=== PATIENT | male | born 1930 | race Caucasian/White ===

== ENCOUNTER 2017-04-27 20:27 | Inpatient (IN) | payer MEDICARE ==
[~2017-04-27] VITALS: Ht 177.8 cm; Wt 57.1 kg
[~2017-04-27 20:27] MED LIST: AUGMENTIN 875-1 EACH PO; BENZONATATE100 MG PO; ZITHROMAX250 MG PO
--- NOTE | 2017-04-27 23:55 | NUR ---
PT ARRIVED TO ROOM 120 FROM ER R/T WEAKNESS, FALL FROM HIS W/C TO HIS KNEES. IS HIS PRIMARY CAREGIVER, AND PER REPORT FROM MELO MINOR IN ER, PT HAS BEEN MORE DIFFICULT TO CARE FOR DUE TO WEAKNESS. "NORMALLY PT IS UP IN HIS CHAIR ALL DAY". PT WAS UNABLE TO STAND ON 04/26/17, SO HIS WAS UNABLE TO CHANGE HIM. ATTENDS PT HAD ON IN ER WAS ON SINCE DAY BEFORE. SENIOR TAX ANALYST STATED PT WAS INCONT OF URINE, SOAKED, WELL BOWEL. PER , WHO IS PRESENT IN ROOM, STATED THAT FOR PAST 3 WEEKS OR SO PATIENT HAS BEEN MORE DIFFICULT TO CARE FOR HE ISN'T ABLE TO HELP. SHE DENIES BEHAVIORS THE CAUSE OF THE INABILITY TO CARE FOR HIM. PT SMILES WHEN TALKED TO, HAS BODY ODOR (BATHING ISSUE VS SKIN BREAKDOWN). NOTE NO BREAKDOWN SKIN, BUT PT IS "BONY" AND AT RISK FOR SKIN BREAKDOWN. FEET AND HANDS ARE COOL, PALE. STATES HE HAS BEEN COLD. WRAPPED IN WARM BLANKET. ATTENDS PRESENT AND DRY AT THIS TIME
--- NOTE | 2017-04-28 02:47 | NUR ---
NOTIFIED DR COREA OF PTS DECREASED BLOOD PRESSURE, NEW ORDERS RECEIVED. NS BOLUS RUNNING WNL AT 500MLS PER HOUR. PT APPEARS ASLEEP, RR WNL AND UNLABORED, PT WAKES TO GENTLE SHAKE, BUT FALLS BACK ASLEEP QUICKLY. BED ALARM ACTIVE. LIGHTS AND TV OFF IN ROOM.
--- NOTE | 2017-04-28 03:50 | NUR ---
RE-ASSESSED BLOOD PRESSURE. PT WOKE, BUT UNABLE TO HOLD CONVERSATION, BUT STATES THIS IS BASELINE FOR HIM.
--- NOTE | 2017-04-28 05:46 | NUR ---
PT HAD UNEVENTFUL NIGHT. SLEPT MAJORITY OF SHIFT. POOR HISTORIAN, ONLY ANSWERS QUESTIONS WITH A "YES," ANSWER, ONLY WORD RN HEARD HIM SAY ALL NIGHT. BED ALARM ON FOR SAFETY. STAYED THE NIGHT IN THE ROOM.
--- NOTE | 2017-04-28 06:52 | NUR ---
CALLED DR COREA REGARDING LOW BLOOD PRESSURE, NO NEW ORDERS AT THIS TIME.
--- NOTE | 2017-04-28 07:50 | NUR ---
PT RESTING SOUNDLY IN BED, EYES CLOSED, RESP EVEN AND UNLABORED. IV INFUSING WNL. BED ALARM ON.
--- NOTE | 2017-04-28 08:29 | NUR ---
PATIENT IN BED RESTING PEACEFULLY WITH HIS EYES CLOSED.
--- NOTE | 2017-04-28 10:00 | NUR ---
PT AWAKE, UNABLE TO COMMUNICATE VERBALLY. DOES NOT APPEAR TO BE IN DISTRESS. SCRATCHING HEAD PROFUSELY, NOTED PT'S SKIN IS VERY DRY AND FLAKEY. APPLIED ALOE CREAM TO HEAD AND THE REST OF PT'S SKIN. PT STOPPED SCRATCHING SHORTLY AFTER. DISORIENTED TO ALL. NON AMBULATORY AT THIS TIME, UNABLE TO FOLLOW COMMANDS. ATTENDS IN PLACE PT IS INCONTINENT, DRY AT THIS TIME. ASSISTED TO EAT SMALL AMOUNT OF BREAKFAST, PHUONG WELL. BED ALARM ON, BED RAILS UP.
--- NOTE | 2017-04-28 10:11 | NUR ---
MED REC COMPLETE WITH [facility] REFILL HISTORY AND [facility]NAL MEDICINE HISTORY AND PHYSICAL. PATIENT TAKES NO HOME MEDICATIONS.
--- NOTE | 2017-04-28 11:10 | NUR ---
PT ATTENDS REMAIN MOSTLY DRY. BLADDER SCANNED FOR 530ML. NOTIFIED DR. COREA, NO NEW ORDERS AT THIS TIME.
--- NOTE | 2017-04-28 12:30 | NUR ---
bed bath done. skin, oral, and david care done. turned onto right side. call button in reach. bed down and alarm on.
--- NOTE | 2017-04-28 13:43 | EKG ---
[facility] [address] [place] [id number] Signed Normal sinus rhythm Moderate voltage criteria for LVH, may be normal variant Borderline ECG No previous ECGs available Confirmed by BITA COREA MD ([id number]) on 04/28/2017 1:43:12 PM Electronically Signed By: BITA COREA MD 04/28/17 1343 PATIENT NAME: JERMAINEVIRYMARILUZ Electrocardiogram DATE OF : [birth year] PHYSICIAN: BITA COREA MD REPORT #: [id number] REPORT IS CONFIDENTIAL AND NOT TO BE RELEASED WITHOUT AUTHORIZATION
--- NOTE | 2017-04-28 15:00 | NUR ---
DIAPER, GURPREET, AND SKIN CARE DONE. TURNED PATIENT ONTO LEFT SIDE. BED DOWN AND ALARM ON. WARM BLANKETS GIVEN.
--- NOTE | 2017-04-28 15:06 | NUR ---
PT INCONTINENT OF URINE. REPOSITIONED.
--- NOTE | 2017-04-28 16:16 | NUR ---
PT BEDBOUND, TURN Q2. INCONTINENT OF BOWEL AND BLADDER. END STAGE DEMENTIA. UNABLE TO COMMUNICATE VERBALLY OR FOLLOW COMMANDS. PT HAS RESTED IN BED THIS SHIFT. SATTING HIGH 90'S ON RA, PULSE OX ON. IV INFUSING WNL. PT REQUIRES ASSISTANCE FEEDING, DRINKS ENSURES WELL. SKIN VERY DRY AND ITCHY, ALOE CREAM APPLIED. HEEL PROTECTORS IN PLACE. BED ALARM ON.
--- NOTE | 2017-04-28 17:05 | NUR ---
Patient resting in bed with eyes closed. diaper clean. turned onto right side. bed alarm on.
--- NOTE | 2017-04-28 18:19 | NUR ---
PATIENT IN BED. STATES THAT HE ISN'T HUNGRY. TRIED TO FEED HIM SOME SOUP. PATIENT GOT IRRITATED AND STARTED SWINING HIS ARM AT ME. WHILE TAKING PATIENTS BP PATIENT GOT UPSET AND STARTED SWINGING HIS ARM AT ME. BED ALARM ON.
--- NOTE | 2017-04-28 18:24 | NUR ---
PT SITTING UP IN BED AWAKE. TURNED AND CHANGED. BED RAILS UP, BED ALARM ON.
--- NOTE | 2017-04-28 19:21 | NUR ---
RECEIVED REPORT FROM DAY SHIFT RN. PATIENT IS RESTING IN BED. PATIENT SAID "HELLO" PATIENT APPEARS TO BE IN NO APPARENT DISTRESS. PATIENTS BED ALARM IS ON AND CALL LIGHT IN REACH.
--- NOTE | 2017-04-28 20:49 | NUR ---
PATIENT ASSESMENT COMPLETED. PATIENT DENIES ANY PAIN. PATIENT DOES NOT SHOW ANY NONVERBAL CUES OF PAIN. PATIENTS ATTEND CHANGED AND GURPREET CARE PERFOMED. PATIENT HAD X1 BM. PATIENT REPOSTIONED IN BED. PATIENT GIVEN DRINKS OF WATER AND ENSURE. BED ALARM ON FOR PATIENT SAFETY PATIENT IS ONLY ORIENTED TO SELF. CALL LIGHT IN REACH.
--- NOTE | 2017-04-28 23:08 | NUR ---
PATIENT REPOSTIONED IN BED. PATIENT GIVEN DRINKS OF ENSURE AND WATER. PATIENT STATED "THIS IS GOOD" PATIENT REMAINS ONLY ORIENTED TO SELF. PATIENTS BED ALARM IS ON FOR SAFETY AND CALL LIGHT IN REACH.
--- NOTE | 2017-04-29 00:28 | NUR ---
PATIENTS ATTEND CHANGED. PATIENT WAS INCONTINENT OF URINE AND STOOL. PATIENT REPOSTIONED IN BED. BED ALARM ON FOR SAFETY AND CALL LIGHT IN REACH.
--- NOTE | 2017-04-29 02:05 | NUR ---
PATIENT RESPOSITIONED. PATIENT IS DROWSY BUT EASY TO AROUSE. PATIENT TOLERATED ACTIVITY WELL. PATIENTS BED ALARM REMAINS ON FOR SAFETY. CALL LIGHT IN REACH.
--- NOTE | 2017-04-29 02:07 | NUR ---
PATIENT REPOSITIONED. PATIENTS ATTEND IS DRY AT THIS TIME. PATIENT TOLERATED ACTIVITY WELL. PATIENT ONLY MOMENTARILY OPENED HIS EYES DURING REPOSTITIONING. PATIENTS BED ALARM REMAINS ON FOR SAFETY AND CALL LIGHT IS WITHIN REACH.
--- NOTE | 2017-04-29 05:19 | NUR ---
PATIENT RESTED WELL THROUGHOUT THE SHIFT. PATIENT REPOSITIONED Q2HRS. PATIENT HAD X2 BMS. PATIENT IS NOT ORIENTED, BUT IS COOPERATIVE WITH CARE. PATIENT IS ON A SOFT REG DIET AND NEEDS ASSISTANCE WITH EATING. PATIENT IS INCONTINENT AND ATTEND IS IN PLACE. PATIENT IS SL AND IV FLUSHES WELL. PATIENTS BED ALARM REMAINS ON FOR PATIENT SAFETY. PATIENT DOES NOT USE CALL LIGHT. PATIENT ACROSS FROM NURSES STATION TO BE MONITORED OFTEN.
--- NOTE | 2017-04-29 06:24 | NUR ---
PATIENTS ATTEND CHANGED AND GURPREET CARE PERFORMED. BARRIER CREAM APPLIED TO COCYX AREA. PATIENT HAD A BMX1. PATIENT DOES ANSWER QUESTIONING ABOUT IMMEDIATE FAMILY. PATIENT IS ONLY ORIENTED TO SELF. PATIENT REPOSITIONED. PATIENTS BED ALARM REMAINS ON FOR SAFETY. CALL LIGHT IN REACH. ORAL CARE PERFORMED.
--- NOTE | 2017-04-29 06:39 | NUR ---
GURPREET CARE PROVIDED TO PATIENT. PATIENT TURNED TO RIGHT SIDE. HAIR BRUSHED, ORAL CARE PROVIDED, FACE WASHED, AND WARM BLANKET. PATIENT IS TOLERATING ORAL LIQUIDS. PATIENT REORIENTED TO SURROUNDINGS AND REASON FOR HOSPITALIZATION. PATIENT IN BED WITH BED ALARM ON. CALL LIGHT WITHIN REACH. NO REQUEST.
--- NOTE | 2017-04-29 07:48 | NUR ---
pt lying in bed. pt unable to answer direct questions at times. on room air. bed alarm on. will need assistance with eating meals. bowel movements multiple overnight. pt itching dry skin. IVF @ 100. advanced diet to soft. will await to hear discharge plan.
--- NOTE | 2017-04-29 10:24 | NUR ---
PT IS LYING IN BED WITH BED ALARM ON AND CALL LIGHT IN REACH. PT WAS CHANGED AND REPOSITIONED ON TO HIS LEFT SIDE.
--- NOTE | 2017-04-29 11:49 | NUR ---
pt continuously waves arms in front of himself. content lying in bed. turned q2. no complaints.
--- NOTE | 2017-04-29 14:22 | NUR ---
PT IS SITTING UP IN BED SAFELY WITH CALL LIGHT IN REACH. PT DID NOT NEED ANYTHING ELSE
--- NOTE | 2017-04-29 14:22 | NUR ---
MELO TONEY REQUESTED THAT I VISIT WITH PT AND HIS SON. PT HAS DEMETIA, ANSWERS QUESTIONS POSED TO HIM. SON STRUGGLING WITH DAD'S CONDITION. THEY HAVE CARED FOR HIM AT THEIR HOME-THAT WILL HAVE TO CHANGE. 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 ANKUSH IS STRUGGLING WITH HIS OWN ISSUES WITH HIS HEALTH AND CHALLENGES HE FACES RAISING HIS KIDS. HE NEEDED TO HAVE SOMEONE TO JUST VENT WITH. HAD PRAYER WITH BOTH AND WILL CONTINUE TO FOLLOW. ENCOURAGED ANKUSH TO VISIT WITH [employer] ABOUT OPTIONS FOR PLACEMENT
--- NOTE | 2017-04-29 16:00 | NUR ---
FAXED CHART NOTES TO [facility] INCLUDING FACESHEET, ER NOTES, H AND P, PROG NOTES, IMAGING, MEDS, LABS AND PT NOTES. TALKED WITH VAN REGARDING THIS PT.
--- NOTE | 2017-04-29 17:28 | NUR ---
DEMENTIA BASELINE. WAVES HANDS IN FRONT OF SELF. PLEASANT. BED ALARM AT NIGHT. COBAN PROTECTING RFA IV. FEEDER. INCONTINENT.
--- NOTE | 2017-04-29 18:11 | NUR ---
PT IS SITTING UP IN BED WATHCHING TV. PT APPEARS TO BE VERY FIGITY, HAD TROUBLE GETTING VITALS DUE TO HE WOULD NOT STOP MOVING. PT STATED HE WAS FINE AND DID NOT NEED ANYTHING
--- NOTE | 2017-04-29 19:12 | NUR ---
RECEIVED REPORT FROM DAY SHIFT RN. PATIENT IS RESTING IN BED. PATIENT DOES NOT RESPOND TO GREETINGS. PATIENTS BED ALARM IS ON FOR SAFETY ADN CALL LIGHT IN REACH.
--- NOTE | 2017-04-29 20:15 | NUR ---
PATIENT ASSESMENT COMPLETED. PATIENTS ATTEND CHANGED AND GURPREET CARE PERFORMED. BARRIER CREAM APPLIED TO COCYX AREA IS IS SLIGHTLY REDDENED. PATIENT REPOSTIONED. PATIENT DOES NOT SHOW ANY NON VERBAL CUES OF PAIN. PATIENT IS NOT ORIENTED AND IS FORGETFUL. PATIENTS BED ALARM IS ON FOR SAFETY AND CALL LIGHT IS WITHIN REACH.
--- NOTE | 2017-04-29 21:21 | NUR ---
VITALS TAKEN BY SALES CONTRACTS ANALYST. SALES CONTRACTS ANALYST ALERTED STAFF THAT PATIENT HAD AN ELEVATED TEMPERATURE. TEMP REASSESED TEMPORAL AND AXILLARY. PATIENT WAS NOT COOPERATIVE WITH AN ORAL TEMP. PLACED A CALL TO DR. COREA ABOUT PATIENTS ELEVATED TEMP. DR. COREA GAVE X2 NEW VERBAL ORDERS, VERIFIED ORDERS USING THE READBACK METHOD. PLACED ORDER FOR A CHEST X-RAY SINGLE VIEW AND A ONE TIME STRAIGHT CATH FOR A CLEAN CATCH URINE SAMPLE. WILL COMPLETE NEW ORDERS.
--- NOTE | 2017-04-29 21:34 | NUR ---
MRI ASSISTANT ADMINISTERED TYLENOL FOR ELEVATED TEMP. X-RAY COMPLETED WITH PORTABLE. PATIENT TOLERATED ACTIVITY WELL.
--- NOTE | 2017-04-29 21:55 | NUR ---
STRAIGHT CATH CLEAN CATCH URINE SAMPLE TAKEN AND SENT TO THE LAB. PATIENT TOLERATED ACTIVITY WELL. PATIENTS ATTEND CHANGED. GURPREET CARE PERFORMED. PATIENT HAD A SMALL BMX1. PATIENT REPOSTIONED AND BED ALARM PLACED ON. CALL LIGHT IN REACH.
--- NOTE | 2017-04-29 22:45 | NUR ---
WENT TO REASSES PATIENTS TEMP. PATIENT WAS IN VISIBLE DISTRESS. PATIENT WAS SHAKING, DIAPHORHETIC, AND HAD AN INCREASED RR. FULL SET OF VITALS TAKEN. PATIENT HAD AN INCREASED TEMPERATURE, AND LOW OXYGEN. PATIENT PLACED ON OXY MASK. EVALUATOR IN THE ROOM WITH PATIENT PLACED A CALL TO DR. COREA. DR COREA TO THE FLOOR TO EVALUATE PATIENT. RT ALSO IN THE ROOM TO EVALAUTE PATIENT. NEW ORDERS PUT IN COMPUTER BY DR. COERA. WILL PUT NEW ORDERS INTO PLACE.
--- NOTE | 2017-04-29 23:42 | NUR ---
PATIENTS VITALS TAKEN AND RECORDED. PATIENT STILL HAS ELEVATED TEMP WILL CONTINUE TO MONITOR. PATIENT IS NOW BACK IN ROOM AIR. PULSE OX IN PLACE TO MONITOR PATIENT. PATIENT RECEIVEING LR BOLUS. LAB IN THE ROOM TO DRAW CULTERES PER ORDER. PATIENTS RR IS 22. BED ALARM ON AND CALL LIGHTIN REACH.
--- NOTE | 2017-04-30 00:28 | NUR ---
PATIENT REPOSITIONED IN BED. BED ALARM ON. CALL LIGHT WITHIN REACH. NO REQUEST AT THIS TIME.
--- NOTE | 2017-04-30 01:00 | NUR ---
PATIENTS BOLUS COMPLETED. PATIENTS TEMPERATURE RE-EVALUATED IT IS NOW 100.7. PATIENT APPEARS TO BE IN N OAPPARENT DISTRESS. BED ALARM IS ON AND CALL LIGHT IN REACH.
--- NOTE | 2017-04-30 01:36 | NUR ---
PATIENTS ATTEND CHANGED. PATIENT HAD X1 BM AND WAS INCONTINENT OF URINE. PATIENT TOLERATED ACTIVITY WELL. PATIENT REPOSTIIONED I BED. CALL BED ALARM ON AND CALL LIGHT IN REACH.
--- NOTE | 2017-04-30 03:16 | NUR ---
PATIENT REPOSITIONED. PATIENT DID NOT AWAKEN. PATIENT IS RESTING WITH EYES CLOSED. BREATHING IS EVEN AND UNLABORED. PATIENTS BED ALARM REMAINS ON FOR SAFETY. CALL LIGHT IN REACH.
--- NOTE | 2017-04-30 05:11 | NUR ---
PATIENT IS RESTING IN BED WITH EYES CLOSED, RR16.
--- NOTE | 2017-04-30 05:11 | NUR ---
PATIENT RESTED WELL DURING THE LATER PART OF THE SHIFT. PATIENT HAD AN INCREASED TEMPERATURE WHICH RESULTED IN NEW ORDERS. PATIENT IS ON A REG, SOFT DIET BUT HAS NOT EATEN ON THE DRUM HANDLER. PATIENT TURNED Q2. PATIENT IS NOT ORIENTED, THEREFORE BED ALARM HAS BEEN ON FOR SAFETY. PATIENT IS INCONTINENT OF STOOL AND URINE. PATIENT HAD SEVERAL BMS. PATIENT RECEIVED PRN TYLENOL X1 FOR INCREASED TEMP.
--- NOTE | 2017-04-30 06:47 | NUR ---
PATIENTS ATTEND CHANGED AND GURPREET CARE PERFORMED. PATIENTS IV INFILTRATED. NEW IV STARTED. PATIENT TOLERATED ACTIVITY WELL. PATIENT SHOWED SIGNS OF OUTWARD DISTRESS. TEMPERATURE TAKEN AND IT WAS 100.2. PATIENT GIVEN PRN TYELNOL PER ORDER. WILL CONTINUE TO MONITOR.
--- NOTE | 2017-04-30 07:23 | NUR ---
RECIEVED BEDSIDE REPORT FROM MELO BURTON AND MELO BRAR. PT IN BED, AWAKE AND ALERT, ORIENT X1. PT VERY RESTLESS, BUT PLEASANT.
--- NOTE | 2017-04-30 09:59 | NUR ---
PT IN BED SLEEPING SOUNDLY, SNORING. PT DIFFICULT TO WAKE, BUT WILL ROUSE TO PAIN. O2 APPLIED WHILE SLEEPING, O2 92% ON 2L. MD AWARE OF LOW BLOOD PRESSURE.
--- NOTE | 2017-04-30 13:52 | NUR ---
PT IS MUCH MORE LETHARGIC TODAY. MD AWARE. WAITING FOR STOOL SAMPLE, NO BM THIS SHIFT. PT WILL WAKE TO ACTVITY AND VOICE. BED BATH COMPLETE.
--- NOTE | 2017-04-30 14:13 | NUR ---
PT WAS CHANGED, GIVEN A COMPLETE BED BATH AND LINEN CHANGE, AND REPOSISTIONED ONTO HIS LEFT SIDE.
--- NOTE | 2017-04-30 17:00 | NUR ---
PT VERY LETHARGIC THIS SHIFT. WILL WAKE TO VERBAL STIMULI AT TIMES. MAY WAKE TO PHYSICAL STIMULI. WHILE AWAKE WILL ANSWER QUESTIONS. MAG RIDER GIVEN, FLUID BOLUS GIVEN, MAINT FLUIDS RUNNING. STOOL SAMPLE SENT TO LAB FOR TESTING. UA, CHEST X RAY, AND LAB WORK COMPLETE.
--- NOTE | 2017-04-30 17:53 | NUR ---
PT IS SITTING UP IN BED I AM ATTEMPTING TO WAKE THE PT SO I CAN FEED HIM DINNER PT BARELY NESS, NURSE AWARE
--- NOTE | 2017-04-30 18:16 | NUR ---
PT VERY DIFFICULT TO WAKE. CHARGE NURSE NOTICED SLIGHT LEFT SIDE FACIAL DROOP. MD ADVISED. CHECK VITALS Q HOUR X [address] HOURS. NOTIFY MD OF RESULTS. PLACE CONDOM CATH TO MEASURE URINE OUTPUT. CONDOM CATH PLACED WELL POSSIBLE. DR COREA ADVISED "IF IT WORKS, GOOD, IF NOT, THAT'S FINE." DIFFICULTY PLACING CATH DUE TO ANATOMY. O2 ON AT 4L VIA NC. MAINTAINING O2 LEVELS IN 90S. PT WAKING SLIGHTLY WITH INCREASE IN O2.
--- NOTE | 2017-04-30 18:52 | NUR ---
WAS ABLE TO WAKE PT UP ENOUGH TO EAT DINNER, HE ATE A FAIR AMOUNT BEFORE REFUSING TO TAKE ANY MORE BITES
--- NOTE | 2017-04-30 21:26 | NUR ---
PT TURNED, INCONTINENT, CLEANSED, CONTINUES TO BE UNABLE TO FOLLOW INSTRUCTIONS, CALM, LISTENING TO SOOTHING MUSIC, IV INFUSING W/O PROBLEMS, O2 4L/NC IN PLACE, CONT PULSE OX IN PLACE
--- NOTE | 2017-05-01 04:57 | NUR ---
Pt continues to be unable to assess information. Turned q2h, slept. Pinches when turning, cooperative, unable to process information when procedures explained. O2 2l/nc, cont pulse ox in place, sats 94-96%. Able top tolerate sips of fluid and jello, no chocking episodes this shift. Incontinent of urine x2, and loose soft bm x1, cleansed. currently turned to r side, no distress. IVF infusing w/o problems. Bed alarm on, pt across from [facility] high risk fall protocol in place, hob elevated 30 degrees. Ocassional dry, non prod coucg present. Awake, has taken off n/c off several times, replaced back on nares.
--- NOTE | 2017-05-01 09:00 | NUR ---
SHOWER COMPLETE, GURPREET CARE DONE, PATIENT FED HIS BREAKFAST ATE 30%. LINEN CHANGE DONE.
--- NOTE | 2017-05-01 09:15 | NUR ---
PT AWAKE IN BED. DISORIENTED TO ALL. PARROTS WORDS AND CAN OCC FOLLOW VERY SIMPLE COMMANDS. DOES NOT APPEAR TO BE IN ANY PAIN OR DISTRESS. SITTING COMFORTABLY IN BED. PT ATE ALL OF BREAKFAST WITH ASSISTANCE. ATTENDS CHANGED. SATTING 95% ON RA. HEEL PROTECTORS IN PLACE. BED RAILS UP, ALARM ON. IV INFUSING WNL.
--- NOTE | 2017-05-01 12:34 | NUR ---
PT IN ROOM FEEDING PT LUNCH.
--- NOTE | 2017-05-01 14:50 | NUR ---
ATTENDS CHANGED. PT REPOSITIONED.
--- NOTE | 2017-05-01 17:05 | NUR ---
PT AWAKE IN BED WATCHING TV. REACHING OUT TO AIR OCCASIONALLY. DOES NOT APPEAR TO BED IN ANY DISTRESS. AIDE FEEDING PT DINNER, PHUONG WELL.
--- NOTE | 2017-05-01 18:07 | NUR ---
PT IS SITTING UP IN BED, BEING FED HIS DINNER, PT DID NOT NEED ANYHTING AT THE [facility]
--- NOTE | 2017-05-02 00:56 | NUR ---
pt turned, incontinent of large amoount of urine and medium sized soft brown bm. whole bed bedding and pts gown changed. procedure explained, not very coop. Repositioned in bed, keeps taking O2 off, awake most of this shift, moves r amr w/o direction, up the mookie , very stiff legs
--- NOTE | 2017-05-02 04:49 | NUR ---
PT TURNED, REQUIRES 2 PERSON ASSIST, INCONTINENT OF URINE AND BOWEL, NOT VERY COOP. PROCEDURE EXPLAINED, PT UNABLE TO PROCESS INFORMATION DUE TO MENTAL STATUS. SKIN CLEANSED, BED LINEN AND GOWN CHANGED. O2 ON AT THIS TIME 2L, SATS 91%
--- NOTE | 2017-05-02 05:37 | NUR ---
PT HX DEMENTIA, UNABLE TO PROCESS INFORMATION, GETS TURNED Q2H. INCONTINENT OF BOWEL AND BLADDER, HAS NEEDED COMPLETE BED CHANGES EVERY TIME. PROCEDURES EXPLAINED TO PT EVERY TIME. HAS O2 N/A 2L WHEN ASLEEP, PT TAKES IT OFF AND IT GETS PLACED BACK. PLEASANTLY CONFUSED, CURRENTLY EYES CLOSED, O2 ON, NO RESP DISTRESS. IV SITE RAC INTACT, LARGE BULLAE AREA MID FOREARM, SOFT, MOVABLE, NON TENDET
--- NOTE | 2017-05-02 07:50 | NUR ---
PT SITTING UP IN BED. MENTATION REMAINS UNCHANGED. PT CAN SPEAK BUT UNABLE TO MAKE NEEDS KNOWN VERBALLY, SPEECH TYPICALLY UNCONPREHENSIBLE. PT APPEARS RELAXED, NO FACIAL GRIMACE OR RESTLESSNESS. BEING FED BREAKFAST BY AIDE, NO SIGNS OF SWALLOWING DIFFICULTIES. ATTENDS DRY. PT REPOSITIONED FREQUENTLY. IV SL, FLUSHES WELL.
--- NOTE | 2017-05-02 10:00 | NUR ---
PT RESTING IN BED, ATTENDS CHANGED, REPOSITIONED. TOOK SIPS OF WATER.
[2017-05-02] MEDS ORDERED: SULFAMETHOXAZO1 EAC1 PO (11:45)
[2017-05-02] MEDS ORDERED: MAPAP500 M1 PO (11:45)
[2017-05-02] MEDS ORDERED: CULTURELLE1 EAC1 PO (11:46)
--- NOTE | 2017-05-02 12:40 | NUR ---
ATTENDS CHANGED, REPOSITIONED. FED PT LUNCH, PHUONG WELL. ATE APPROX 90% OF MEAL.
--- NOTE | 2017-05-02 15:00 | NUR ---
PT REPOSITIONED, ATTENDS CHANGED. PT TOOK SIPS OF WATER. AT BEDSIDE.
--- NOTE | 2017-05-02 18:05 | NUR ---
PT FED DINNER. ATTENDS CHANGED, REPOSITINED IN BED. TOLERATED ORAL MEDS WELL.
--- NOTE | 2017-05-02 20:00 | NUR ---
EYES CLOSED, LEFT ARM REACHING UP IN THE AIR, AIMLESSLY. HOB ELEVATED AT THIS TIME.
--- NOTE | 2017-05-02 22:00 | NUR ---
ASSESS COMPLETE. PT SAID HI WHEN SPOKEN TO BUT UNABLE TO ANSWER QUESTIONS.
--- NOTE | 2017-05-02 22:51 | NUR ---
PT CHANGED AND REPOSITIONED BY THE [employer].
--- NOTE | 2017-05-03 01:26 | NUR ---
PT CURRENLTY MOVING AROUND IN BED, LIFTING HIS ARMS UP, LIFTING HIS HEAD UP. MOIST COUGH HEARD OFF AND ON. PT HOB ELEVATED 45 DEGREES, SIDE RAILS UP X 4 WITH BED ALARM ON.
--- NOTE | 2017-05-03 02:27 | NUR ---
INCONT CARE PROVIDED PT, WELL REPOSITIONED AND APPLIED LOTION PT WAS ITCHING HIS LEFT BUTTOCK. IS IN NEED OF HIS FINGERNAILS TO BE TRIMMED. PT WAS GRABBING, AND CLUTCHING SIDE RAILS AND STAFF ARMS DURING CARES. NEEDED REASSURANCE AND CUEING. ONCE CARE AND REPOSITIONING COMPLETED, PT SETTLED DOWN.
--- NOTE | 2017-05-03 03:43 | NUR ---
PT SNORING. HAS BEEN SNORING OFF AND ON SINCE BEING REPOSITIONED.
--- NOTE | 2017-05-03 06:38 | NUR ---
PT AWAKE TO RECEIVE PERSONAL CARE. INCONT CARE PROVIDED EVERY 2 HOURS, WITH TURNING. PT CONFUSED PER HIS NORM, NEEDING ENCOURAGEMENT TO ALLOW THE CARE.
--- NOTE | 2017-05-03 09:20 | NUR ---
PT ASSISTED WITH FEEDING, PHUONG BREAKFAST WELL. RECIEVED FULL BED BATH AND LINEN CHANGE.
--- NOTE | 2017-05-03 09:44 | NUR ---
BED BATH GIVEN WITH 2 PERSON ASSIST. GURPREET AND SKIN CARE DONE. FLOAT PATIENT ON ONE PILLOW UNDER EACH HIP AND PILLOW UNDER LEGS. PATIENT SITTING STRAIGHT UP IN BED WITH NURSE ASSISTING WITH BREAKFAST. BED ALARM ON.
--- NOTE | 2017-05-03 12:01 | NUR ---
SENT UPDATED CLINICALS TO [facility] THIS AM INCLUDING NURSING/MD NOTES AND PT NOTES.
--- NOTE | 2017-05-03 12:17 | NUR ---
P.T. WORKING WITH PT PERFORMING PASSIVE RANGE OF MOTION.
--- NOTE | 2017-05-03 12:45 | NUR ---
PATIENT TURNED ONTO RIGHT SIDE. BED ALARM ON.
--- NOTE | 2017-05-04 09:57 | NUR ---
CALLED AND SPOKE WITH PT ROBERTA, WHO STATES SHE NEVER TALKED TO ME LAST WEEK AND WE NEVER TALKED ABOUT DC PT ANYWHERE. TOLD HER THAT WE DID TALK ABOUT THIS AND WE ALSO TALKED ABOUT MEDICARE PAYING THE FIRST 20 DAYS AND THEN IT PAYS 80% FOR DAYS 21 THRU 100. THEN WE ALSO TALKED ABOUT HER APPLYING WITH [employer] AND PEOPLE WITH DISABLITIES TO SEE WHAT ASSISTANCE THEY COULD GIVE HER. I THEN TALKED WITH THE PT SON ANKUSH AND REITERATED TO THEM THAT I HAD TALKED TO THEM ABOUT MEDICARE AND MEDICAID AND ABOUT DIFFERENT FACILITIES AND EITHER I OR [facility] WOULD BE GLAD TO ASSIST THEM TO GET HIM INTO ANOTHER FACILITY. THEY TOLD ME THANK YOU AND TOOK MY NUMBER. THEY ALSO STATED THAT FOR THE TIME BEING THEY THOUGHT THEY WOULD LEAVE HIM AT [facility] AND LOOK AROUND AT SOME OF THE ASSISTED LIVING FACILITIES. I TOLD THEM [facility] HAS STAFF THAT IT IS THEIR JOB TO HELP WITH PLACEMENT INTO [facility] WHEN THE PT WAS READY FOR THAT. GAVE THE SON THE NAMES OF LOCAL RETIREMENT.
== END 2017-05-03 15:00 | disposition home or self-care (01) | DRG 871 ==
LOC: ED 20:27 → MS 20:28
PROVIDERS: ADMIT Internal Medicine
DX: A41.89 Other specified sepsis (principal); G93.41 Metabolic encephalopathy; E87.0 Hyperosmolality and hypernatremia; E44.0 Moderate protein-calorie malnutrition; F03.91 Unspecified dementia, unspecified severity, with behavioral disturbance; N39.0 Urinary tract infection, site not specified; E86.0 Dehydration; R19.7 Diarrhea, unspecified; T36.95XA Adverse effect of unspecified systemic antibiotic, initial encounter; E87.6 Hypokalemia; D64.9 Anemia, unspecified; Z66 Do not resuscitate; B96.1 Klebsiella pneumoniae [K. pneumoniae] as the cause of diseases classified elsewhere; Z87.891 Personal history of nicotine dependence
CPT/HCPCS: 36415; 70450; 71010; 73560; 80048; 80053; 81001; 82607; 82728; 82746; 83540; 83735; 84466; 85025; 85045; 85610; 85730; 87040; 87045; 87046; 87077; 87088; 87186; 87205; 87493; 93005; 93010; 96361; 97110; 97140; 97162; 97165; G0378; G8978; G8979; J0696; J1650; J1885; J3475; J3480; J7030; J7042; J7120

== ENCOUNTER 2017-10-18 21:21 | Inpatient (IN) | payer MEDICARE ==
[~2017-10-18] VITALS: Ht 177.8 cm; Wt 56.7 kg
[~2017-10-18 21:21] MED LIST changes: +CULTURELLE1 EAC1 PO; +MAPAP500 M1 PO; +SULFAMETHOXAZO1 EAC1 PO
--- OUTSIDE RECORDS SUMMARY | 2017-10-18 23:51 | XMS | Clinical Summary ---
Demographics + + + | Address | [address] | | | [place] [address] | + + + | Home Phone | | + + + | Preferred Language | Unknown | + + + | Marital Status | | + + + | Amish Affiliation | CHR | + + + | Race | White | + + + | Ethnic Group | Not or | + + + Author + + + | Author | [facility] | + + + | Organization | [facility] | + + + | Address | Unknown | + + + | Phone | Unavailable | + + + Support +------+ + + + +-------+ | Name | Relationship | Address | Phone | +------+ + + + +-------+ ECON | [address] | | [place] | [address] | +------+ + + + +-------+ Care Team Providers + +------+ + | Care Review Specialist Name | Role | Phone | + +------+ + | Helder Torres MD | PP | | + +------+ + Source Comments [place] is fully live on both [facility] Ambulatory and [facility] InPatient.[facility] Allergies No Known Allergies Current Medications + + +---------+---------+------+------+-------+ | Prescription | Sig. | Disp. | Refills | Star | End | Statu | | | | | | t | Date | s | | | | | | Date | | | + + +---------+---------+------+------+-------+ | prednisoLONE | Instill 1 drop into | 10 mL | 2 | 05/14 | | Activ | | acetate (PRED FORTE) | the right eye two | | | 06/02 | | e | | 1 % ophthalmic | times daily. 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 | | | | 08 | 4 | + + + + Family History + + +------+ + | Medical History | Relation | Name | Comments | + + +------+ + | Epilepsy | Mother | | | + + +------+ + + +------+--------+ + | Relation | Name | Status | Comments | + +------+--------+ + | Mother | | | | + +------+--------+ + Social History + +-------+ +--------+------+ | Tobacco Use | Types | Packs/Day | Years | Date | | | | | Used | | + +-------+ +--------+------+ | Never Smoker | | | | | + +-------+ +--------+------+ + + +---------+ + | Alcohol Use | Drinks/We | oz/Week | Comments | | | ek | | | + + +---------+ + | No | | | | + + +---------+ + + + + | Sex Assigned at | Date Recorded | | | | + + + | Not on file | | + + + Last Filed Vital Signs + + + + | Vital Sign | Reading | Time Taken | + + + + | Blood Pressure | 142/73 | 08/18/2011 6:45 PM PST | + + + + | Pulse | 47 | 08/18/2011 6:45 PM PST | + + + + | Temperature | 36.7 C (98.1 F) | 08/18/2011 6:45 PM PST | + + + + | Respiratory Rate | 16 | 08/18/2011 6:45 PM PST | + + + + | Oxygen Saturation | 98% | 08/18/2011 6:45 PM PST | + + + + | Inhaled Oxygen | - | - | | Concentration | | | + + + + | Weight | 62.3 kg (137 lb 5.6 | 08/18/2011 1:10 PM PST | | | oz) | | + + + + | Height | 177.8 cm (5' 10") | 08/18/2011 1:10 PM PST | + + + + | Body Mass Index | 19.71 | 08/18/2011 1:10 PM PST | + + + + Plan of Treatment + + + + + | Health Maintenance | Due Date | Last Done | Comments | + + + + + | INFLUENZA VACCINE | | | | | (FLU SHOT) | 7 | | | + + + + + Results Not on filefrom Last 3 Months
--- OUTSIDE RECORDS SUMMARY | 2017-10-18 23:52 | XMS | Clinical Summary ---
Demographics + + + | Address | [address] | | | [place] [address] | + + + | Home Phone | | + + + | Preferred Language | Unknown | + + + | Marital Status | | + + + | Anabaptism Affiliation | CHR | + + + | Race | White | + + + | Ethnic Group | Not or | + + + Author + + + | Author | [facility] | + + + | Organization | [facility] | + + + | Address | Unknown | + + + | Phone | Unavailable | + + + Support +------+ + + + +-------+ | Name | Relationship | Address | Phone | +------+ + + + +-------+ ECON | [address] | | [place] | [address] | +------+ + + + +-------+ Care Team Providers + +------+ + | Care Laboratory Equipment Installer Name | Role | Phone | + +------+ + | Helder Torres MD | PP | | + +------+ + Source Comments [place] is fully live on both [facility] Ambulatory and [facility] InPatient.[facility] Allergies No Known Allergies Current Medications + [...]
--- OUTSIDE RECORDS SUMMARY | 2017-10-18 23:52 | XMS | Clinical Summary ---
Demographics + + + | Address | [address] | | | [place] [address] | + + + | Home Phone | | + + + | Preferred Language | Unknown | + + + | Marital Status | | + + + | Jain Affiliation | CHR | + + + | Race | White | + + + | Ethnic Group | Not or | + + + Author + + + | Author | [facility] | + + + | Organization | [facility] | + + + | Address | Unknown | + + + | Phone | Unavailable | + + + Support +------+ + + + +-------+ | Name | Relationship | Address | Phone | +------+ + + + +-------+ ECON | [address] | | [place] | [address] | +------+ + + + +-------+ Care Team Providers + +------+ + | Care Biological Science Technician Fish Name | Role | Phone | + +------+ + | Helder Torres MD | PP | | + +------+ + Source Comments [place] is fully live on both [facility] Ambulatory and [facility] InPatient.[facility] Allergies No Known Allergies Current [...]
--- NOTE | 2017-10-19 13:24 | EKG ---
[facility] [address] [place] [address] Signed Sinus tachycardia Low voltage QRS Inferior infarct , age undetermined Poor data quality, interpretation may be adversely affected Abnormal ECG When compared with ECG of 27-APR-2017 20:43, premature ventricular complexes are now present Inferior infarct is now present ST now depressed in Anterior leads T wave inversion no longer evident in Inferior leads Confirmed by BITA COREA MD ([id number]) on 10/19/2017 1:24:33 PM Electronically Signed By: BITA COREA MD 10/19/17 1324 PATIENT NAME: MARILUZ GAYLE Electrocardiogram DATE OF : [birth year] PHYSICIAN: BITA COREA MD REPORT #: [id number] REPORT IS CONFIDENTIAL AND NOT TO BE RELEASED WITHOUT AUTHORIZATION
[2017-10-22] MEDS ORDERED: PROBIOTIC1 EAC1 PO (09:21)
[2017-10-22] MEDS ORDERED: AMOXICILLIN500 MG PO (09:21)
== END 2017-10-22 12:05 | disposition home or self-care (01) | DRG 872 ==
LOC: ED 21:21 → CCU 23:29 → MS 10-20 13:05
PROVIDERS: ADMIT Internal Medicine
PROC: 3E0234Z Introduction of Serum, Toxoid and Vaccine into Muscle, Percutaneous Approach (ICD-10-PCS; principal; 2017-10-22)
DX: A41.81 Sepsis due to Enterococcus (principal); N39.0 Urinary tract infection, site not specified; F02.81 Dementia in other diseases classified elsewhere, unspecified severity, with behavioral disturbance; F05 Delirium due to known physiological condition; B95.2 Enterococcus as the cause of diseases classified elsewhere; Z23 Encounter for immunization; E87.6 Hypokalemia; E86.0 Dehydration; G30.9 Alzheimer's disease, unspecified; Z87.891 Personal history of nicotine dependence; Z85.038 Personal history of other malignant neoplasm of large intestine; Z66 Do not resuscitate
CPT/HCPCS: 36415; 71045; 76770; 80048; 80053; 81001; 83605; 83735; 85025; 87040; 87070; 87077; 87088; 87186; 87205; 87502; 90662; 93005; 93010; 97110; 97163; 97530; G0008; J0295; J0696; J1650; J1885; J3475; J3480; J7030; J7060; J7120

== ENCOUNTER → 2017-11-06 | Emergency (ER) | payer MEDICARE ==
[~2017-11-06] VITALS: Ht 177.8 cm; Wt 56.7 kg
[~2017-11-06] MED LIST changes: +AMOXICILLIN500 MG PO; +PROBIOTIC1 EAC1 PO
--- OUTSIDE RECORDS SUMMARY | ~2017-11-06 | XMS | Clinical Summary ---
Demographics + + + | Address | [address] | | | [place] [address] | + + + | Home Phone | | + + + | Preferred Language | Unknown | + + + | Marital Status | | + + + | Caodaism Affiliation | CHR | + + + | Race | White | + + + | Ethnic Group | Not or | + + + Author + + + | Author | [facility] | + + + | Organization | [facility] | + + + | Address | Unknown | + + + | Phone | Unavailable | + + + Support + + + + + | Name | Relationship | Address | Phone | + + + + + | ROBERTA GAYLE | ECON | [address] | | | | | [place], [place] | | | | | [address] | | + + + + + Care Team Providers + +------+ + | Care Crm Coordinator Name | Role | Phone | + +------+ + | Helder Torres MD | PP | | + +------+ + Source Comments [place] is fully live on both [facility] Ambulatory and [facility] InPatient.[facility] Allergies No Known Allergies Current Medications [...]
--- OUTSIDE RECORDS SUMMARY | ~2017-11-06 | XMS | Clinical Summary ---
Demographics + + + | Address | [address] | | | [place] [address] | + + + | Home Phone | | + + + | Preferred Language | Unknown | + + + | Marital Status | | + + + | Orthodox Affiliation | CHR | + + + | Race | White | + + + | Ethnic Group | Not or | + + + Author + + + | Author | [facility] | + + + | Organization | [facility] | + + + | Address | Unknown | + + + | Phone | Unavailable | + + + Support + + + + + | Name | Relationship | Address | Phone | + + + + + | ROBERTA GAYLE | ECON | [address] | | | | | [place], [place] | | | | | [address] | | + + + + + Care Team Providers + +------+ + | Care Theater Teacher Name | Role | Phone | + +------+ + | Helder Torres MD | PP | | + +------+ + Source Comments [place] is fully [place] on both [facility] and [facility] Allergies No Known Allergies Current [...]
== END ==
LOC: ED 15:07
DX: Z71.1 Person with feared health complaint in whom no diagnosis is made (principal); Z87.891 Personal history of nicotine dependence; Z79.2 Long term (current) use of antibiotics; Z79.899 Other long term (current) drug therapy
CPT/HCPCS: 71045; 80053; 81001; 85025; 87088; 99283; J7040